=== PATIENT | female | born 1985 | race Caucasian/White ===

== ENCOUNTER 2017-02-05 19:15 | Emergency (ER) | payer OTHER ==
[~2017-02-05] VITALS: Ht 165.1 cm; Wt 59.3 kg
[2017-02-05 19:24] VITALS: TEMP 36.9; Ht 165.1 cm; Wt 59.3 kg
[2017-02-05] MEDS ORDERED: KETOROLAC TROMETHAMINE 60 MG/2 ML VIAL IM STA (20:19)
[2017-02-05] MEDS ORDERED: DiphenhydrAMINE HCL 50 MG/ML VIAL IM STA (20:22)
[2017-02-05] MEDS ORDERED: PROMETHAZINE HCL INJ 25 MG/ML 1 ML VIAL IM STA (20:22)
--- NOTE | 2017-02-05 20:35 | EMERGENCY ROOM VISIT NOTE ---
History First contact with patient: 19:59 Chief Complaint: HEADACHE Stated Complaint: MIGRAINE X7 DAYS, NAUSEA, DIZZY History of Present Illness The patient is a 31 year old female who presents to the Emergency Room with complaints of a migraine headache 7 days. The patient states that she has had a constant, worsening headache over the past 7 days. She rates her discomfort a 7/10. She states the headache is located in bilateral temples and is throbbing in nature. She reports sensitivity to noise and light. She has been nauseous, but has not had vomiting. She does have a history of migraines, but does not see a neurologist for it. She has not seen her primary care provider in several years. She does believe she has had imaging of the brain in the past. The patient states this does feel similar to migraines in the past, but it is not improving with medications which is unusual for her. She has been taking Midol, Excedrin and ibuprofen without relief. She denies any neck pain/ stiffness. She denies any recent illness or fevers. She denies any numbness, weakness, confusion, blurred vision or slurred speech. Review of Systems A complete 10 point review of systems was reviewed with the patient with pertinent positives and negatives as per history of present illness. All else were negative. Social History Smoking Status: Current Every Day Smoker Current/Historical Medications No Active Prescriptions or Reported Meds Physical Exam Vital Signs Date Time Temp Pulse Resp B/P (MAP) Pulse Ox O2 Delivery O2 Flow Rate FiO2 02/05/17 23:11 62 18 94/66 98 02/05/17 21:16 68 20 109/76 100 Room Air 02/05/17 19:24 36.9 82 18 111/82 97 Room Air Physical Exam VITALS: Vitals are noted on the nurse's note and reviewed by myself. Vital signs stable. GENERAL: This is a 31-year-old female, in no acute distress, nondiaphoretic, well-developed well-nourished. HEAD: Normocephalic atraumatic. EARS: External auditory canals clear, tympanic membranes pearly tidwell without erythema or effusion bilaterally. EYES: Pupils equal round and reactive to light and accommodation. Conjunctivae without injection, sclerae without icterus. Extraocular movements intact. MOUTH: Mucous membranes moist. Tonsils are not enlarged. Pharynx without erythema or exudate. NECK: Supple without nuchal rigidity. No lymphadenopathy. No meningismus. HEART: Regular rate and rhythm without murmurs gallops or rubs. LUNGS: Clear to auscultation bilaterally without wheezes, rales or rhonchi. MUSCULOSKELETAL: Full range of motion throughout. Strength 5/5 throughout. NEURO: Patient was alert and oriented to person place and time. Normal sensation to light and sharp touch. No focal neurological deficits. Medical Decision & Procedures Medications Administered Medications (Trade) Dose Ordered Sig/Parul Route Start Time Stop Time Status Last Admin Dose Admin Ketorolac Tromethamine (Toradol Inj) 60 mg NOW STAT IM 02/05/17 20:19 02/05/17 20:22 DC 02/05/17 21:10 60 MG Promethazine HCl (Phenergan Inj) 25 mg NOW STAT IM 02/05/17 20:22 02/05/17 20:23 DC 02/05/17 21:09 25 MG Diphenhydramine HCl (Benadryl Inj) 25 mg NOW STAT IM 02/05/17 20:22 02/05/17 20:23 DC 02/05/17 21:10 25 MG Morphine Sulfate (MoRPHine SULFATE INJ) 2 mg STK-MED ONCE .ROUTE 02/05/17 22:08 02/05/17 22:09 DC 02/05/17 22:10 2 MG Morphine Sulfate (MoRPHine SULFATE INJ) 4 mg STK-MED ONCE .ROUTE 02/05/17 22:09 02/05/17 22:10 DC 02/05/17 22:12 4 MG Acetaminophen/ Hydrocodone Bitart ([place] 5/325mg Home Pack) 1 homepack UD ONCE PO 02/05/17 22:45 02/05/17 22:46 DC 02/05/17 23:10 1 HOMEPACK ED Course The patient was evaluated as above. Patient was medicated with Toradol, Phenergan and Benadryl IM. Patient was reassessed and reported no relief. She was given 6 mg morphine IM. Patient was reevaluated and stated she had very little relief. Options of care were discussed including further workup, but the patient preferred to be discharged home. She will be given a home pack of [place] for pain. Discharge instructions were reviewed with the patient. The patient verbalized understanding of my assessment and treatment plan and was discharged home in good condition. Medical Decision The differential diagnosis includes acute intracranial bleed, meningitis, encephalitis, mass or mass effect, sinusitis, infection, tumor, headache, temporal arteritis and carbon monoxide exposure, and migraine. The patient is a 31-year-old female who presents today complaining of a headache which she states is similar to her previous migraine headaches. There is no evidence of meningismus on exam. History is not consistent with subarachnoid hemorrhage. Neuro exam is intact. Patient was treated with IM medications but had little relief. She was offered further workup and treatment , but stated she preferred to be discharged home. She was encouraged to follow- up with her primary care provider or neurology for further treatment of her migraines. She was encouraged to return here for any worsening symptoms or new/ concerning symptoms. Based on the patient's presentation and work up, I feel the patient is stable for outpatient treatment. The patient was educated to return to the emergency department for any worsening of their current condition or new/concerning symptoms. She will follow up with her PCP. Medication Reconcilliation Current Medication List: was personally reviewed by me Blood Pressure Screening Patient's blood pressure: Normal blood pressure Impression Primary Impression: Headache Departure Information Dispostion Home / Self-Care Condition GOOD Prescriptions No Active Prescriptions or Reported Meds Referrals No Doctor, Assigned (PCP) Patient Instructions [facility] Additional Instructions You have been treated in the Emergency Department for a Headache. You have received pain medicine in the emergency department which impairs your ability to operate a vehicle. It is illegal for you to drive after receiving these medicines. You have been prescribed [place] to be used for pain control. This is a narcotic medication. You cannot drive or consume alcohol while on this medicine. This medicine should only be used for pain that cannot be controlled with over-the- counter pain medicines. For pain control, you can use the following [id number] medicines (if >12 yo): - Regular strength (325mg/tab) Tylenol (acetaminophen) 2 tabs every 4-6 hours as needed. Do not exceed 12 tablets in a 24 hour period. Avoid taking more than 4 grams (4000 mg) of Tylenol per day. This includes any other sources of acetaminophen you may take on a regular basis. - Regular strength (200 mg/tab) Advil (ibuprofen) 1-2 tabs every 4-6 hours as needed. Do not exceed a dose of 3200 mg per day. You should relax in a quiet, dark place for the rest of the day. Avoid any possible triggers including: cigarette smoke, caffeine, nicotine, chocolate, wine, beer, loud noises or music, or bright lights. You should schedule a follow-up appointment in 2-3 days with your Primary Care Provider or established Neurologist for further evaluation and treatment of your Headache. Return to the Emergency Department if your current symptoms worsen despite treatment course outlined above, or if you develop any of the following symptoms : intractable pain despite aforementioned treatment course, visual disturbances , loss of vision, unilateral weakness or facial drooping, slurring of speech, loss of coordination, or loss of consciousness.
[2017-02-05] MEDS ORDERED: MoRPHine SULFATE 10 MG/ML CARP/VIAL IM STA (21:42)
[2017-02-05] MEDS ORDERED: MoRPHine SULFATE 2 MG/ML CARP ONE (22:08)
[2017-02-05] MEDS ORDERED: MoRPHine SULFATE 4 MG/ML 1 ML CARP\\VIAL ONE (22:09)
[2017-02-05] MEDS ORDERED: NORCO 5/325MG HOME PACK PO ONE (22:45)
[2017-02-05 23:11] VITALS: BP 94/66; PULSE 62; O2SAT 98
== END 2017-02-05 23:11 | disposition home or self-care (01) ==
LOC: C.EDA 19:19 → MERGE 19:19 → C.EDA 23:11
DX: R51 Headache (principal); F17.200 Nicotine dependence, unspecified, uncomplicated